=== PATIENT | male | born 1960 | race Caucasian/White ===

== ENCOUNTER 2016-12-07 11:08 | Emergency (ER) | payer OTHER ==
[~2016-12-07] VITALS: Ht 177.8 cm; Wt 63.6 kg
[2016-12-07] MEDS ORDERED: NORCO 5/3251 TABLET PO (12:15)
[2016-12-07] MEDS ORDERED: MIRALAX17 GM PO (12:23)
[2016-12-07 12:27] VITALS: BP 134/84
== END 2016-12-07 12:28 | disposition home or self-care (01) ==
LOC: EME 11:08
PROC: 2W3LX1Z Immobilization of Right Lower Extremity using Splint (ICD-10-PCS; principal; 2016-12-07)
DX: S82.851A Displaced trimalleolar fracture of right lower leg, initial encounter for closed fracture (principal); W10.9XXA Fall (on) (from) unspecified stairs and steps, initial encounter
CPT/HCPCS: 73610; 99281; 99283